=== PATIENT | female | born 2000 | race Caucasian/White ===

== ENCOUNTER 2021-12-04 11:17 | Emergency (ER) | payer OTHER, SELFPAY ==
--- NOTE | ~2021-12-04 | XR_ITS ---
EXAMINATION: XR chest 2V DATE: 12/04/2021 11:57 INDICATION: Shortness of breath. Cough. TECHNIQUE: Frontal and lateral views of the chest were obtained. COMPARISON: None. FINDINGS: The chest demonstrates clear lungs without pneumonia, pleural effusion, or pneumothorax. Th e heart size is normal. IMPRESSION: 1. No acute cardiopulmonary disease. Reviewed, dictated and finalized at location B.
[2021-12-04 11:23] VITALS: BP 137/82; PULSE 103; RESP 20; TEMP 36.8; O2SAT 99
[2021-12-04 11:30] VITALS: O2SAT 97
[2021-12-04 11:33] VITALS: PULSE 107
--- NOTE | 2021-12-04 11:33 | ECG_ITS ---
Measurements Intervals [place] Rate: 95 P: 69 TN: 130 QRS: 32 QRSD: 92 T: 12 QT: 318 QTc: 400 Interpretive Statements SINUS RHYTHM INCOMPLETE RIGHT BUNDLE BRANCH BLOCK BORDERLINE ST-T WAVE ABNORMALITY- INFERIOR LEADS BASELINE ARTIFACT- I, II, III, AVL, AVF BORDERLINE ECG Electronically Signed On 12-04-2021 12:51:11 CDT by Gianfranco Olivas D.O.
--- NOTE | 2021-12-04 11:57 | ED.SOB ---
HPI - SOB/Dyspnea General Chief Complaint: Shortness of Breath/Dyspnea Stated Complaint: diagnosed with RSV started on antibiotic - high HR Time Seen by Provider: 12/04/21 11:29 History of Present Illness HPI Narrative: 21-year-old female presents to the emergency room for evaluation of reproducible, intermittent chest pain with high heart rate. Patient states that her daughter was recently diagnosed with RSV, and she went to be evaluated by urgent care 2 days ago. Patient states that she was started on an albuterol inhaler and 50 mg of prednisone, and has noticed that her heart rate has been high since then. Patient also states that she has had a nonproductive cough since . Patient states that she was started on a Z-Yosef yesterday, and has had no relief of symptoms since then. Related Data Home Medications Medication Instructions Recorded Confirmed albuterol sulfate 2 inh INHALATION Q6H PRN 12/04/21 azithromycin [Zithromax Z-Yosef] mg PO 12/04/21 benzonatate [Tessalon Perles] 100 mg PO TID 12/04/21 prednisone 50 mg PO DAILY 12/04/21 Allergies Allergy/AdvReac Type Severity Reaction Status Date / Time No Known Allergies Allergy Verified 12/04/21 11:34 Review of Systems Review of Systems: CONSTITUTIONAL: Denies fever, chills, or sweats. EYES: Denies visual changes, redness, or discharge. ENT: Denies rhinorrhea, congestion, sore throat, or otalgia. CARDIOVASCULAR: Reports chest pain RESPIRATORY: Reports cough and shortness of breath GASTROINTESTINAL: Denies abdominal pain, nausea, vomiting, or diarrhea. GENITOURINARY: Denies dysuria or hematuria. SKIN: Denies rash or itching. MUSCULOSKELETAL: Denies back pain, joint pain, or myalgia. NEUROLOGIC: Denies headache, numbness, dizziness, or weakness. PSYCHIATRIC: Denies anxiety or depression. Exam Narrative: GENERAL: Well-appearing, well-nourished, and in no acute distress. HEAD: Normocephalic, atraumatic. EYES: PERRLA and EOMI. ENT: Nares clear, no rhinorrhea or epistaxis. Mucous membranes moist. Oropharynx without tonsillar hypertrophy exudate or other lesions. Bilateral TMs pearly portillo nonbulging CHEST: Clear to auscultation. No respiratory distress. No wheezes rales or rhonchi HEART: Regular rate and rhythm. No murmur heard. Normal peripheral pulses. EXTREMITIES: Normal range of motion. No edema. SKIN: Warm, dry, no rash. NEURO: No focal deficits. Alert and oriented x3. PSYCH: Normal mood and affect. Course Vital Signs Vital signs: Vital Signs Temperature 36.8 C 12/04/21 11:23 Pulse Rate 103 H 12/04/21 11:23 Respiratory Rate 20 12/04/21 11:23 Blood Pressure 137/82 12/04/21 11:23 Pulse Oximetry 99 12/04/21 11:23 Temperature 36.8 C 12/04/21 11:23 Pulse Rate 107 H 12/04/21 11:33 Respiratory Rate 20 12/04/21 11:23 Blood Pressure 137/82 12/04/21 11:23 Pulse Oximetry 99 12/04/21 11:23 MDM - SOB/Dyspnea MDM Narrative Medical decision making narrative: 19-year-old female presented to the emergency room for evaluation of shortness of breath, cough and intermittent chest pain. Patient's daughter was recently diagnosed with RSV, and she was told that she had RSV as well without being tested. Patient was sent home from an urgent care 2 days ago with a course of steroids, an albuterol inhaler and Tessalon Perles. Patient states that her symptoms have not improved or resolved. Examining recent prescriptions, milligrams of prednisone daily in the late afternoon. Discussed with patient that her elevated heart rate is likely due to her steroid and albuterol use. We will recommend the patient use half the dose of the steroids she was scribed. Medical Records Attestation: I reviewed the patient's medical records. Lab Data Attestation: I reviewed the patient's lab results. Labs: Lab Results 12/04/21 Range/Units 11:47 Influenza A (RT-PCR) Negative (Negative) Influenza B (RT-PCR) Negative (Negative) SARS-CoV-2 RNA (R
[2021-12-04 12:33] LABS: Influenza A QL RT-PCR Negative (Negative); Influenza B QL RT-PCR Negative (Negative); SARS-CoV-2 RNA PCR Negative
[2021-12-04 13:37] VITALS: BP 124/73; PULSE 94; RESP 20; O2SAT 99
== END 2021-12-04 13:37 | disposition home or self-care (01) ==
PROVIDERS: Emergency Provider Nurse Practitioner Family; PCP Nurse Practitioner Family
DX: B34.9 Viral infection, unspecified (principal); Z20.822 Contact with and (suspected) exposure to COVID-19; I45.10 Unspecified right bundle-branch block; R94.31 Abnormal electrocardiogram [ECG] [EKG]
CPT/HCPCS: 71046; 87420; 87502; 93005; 99283; C9803; U0003; U0005

== ENCOUNTER 2022-01-25 08:38 | Emergency (ER) | payer OTHER, SELFPAY ==
--- NOTE | ~2022-01-25 | CT_ITS ---
EXAMINATION: CT thoracic lumbar wo con DATE: 01/25/2022 09:53 INDICATION: Back tenderness. TECHNIQUE: Computed tomography (CT) of the thoracic and lumbar spine was performed without intravenou s contrast. Automated exposure control and iterative reconstruction technique were employed. The dose -length product was 1152.00 mGy-cm. COMPARISON: Chest 2 views 12/04/2021 FINDINGS: CT THORACIC SPINE: There is 9 degrees dextrocurvature of thoracic spine. Vertebral body heights are n ormal. There is mildly decreased disc height from T3-T4 through T8-T9. There is multilevel mild facet joint osteoarthritis. No neural foraminal stenosis or central canal stenosis. CT LUMBAR SPINE: There is a 2 mm stone in right kidney. There is a 3 mm stone in left kidney. Bone al ignment is normal. Vertebral body heights are normal. Intervertebral disc heights are normal. The fol lowing disc levels are specifically discussed: L1-L2: The disc does not extend beyond the endplate margin. There is mild bilateral facet joint osteo arthritis. There is no neural foraminal stenosis. There is no central canal stenosis. L2-L3: The disc is bulging. There is mild bilateral facet joint osteoarthritis. There is mild bilater al neural foraminal stenosis. There is mild central canal stenosis. L3-L4: The disc is bulging. There is mild bilateral facet joint osteoarthritis. There is mild bilater al neural foraminal stenosis. There is mild central canal stenosis. L4-L5: The disc is bulging. There is mild bilateral facet joint osteoarthritis. There is mild bilater al neural foraminal stenosis. There is mild central canal stenosis. L5-S1: The disc is bulging. There is mild bilateral facet joint osteoarthritis. There is mild bilater al neural foraminal stenosis. There is mild central canal stenosis. IMPRESSION: 1. No fracture. 2. Mild thoracic and lumbar spondylosis. Reviewed, dictated and finalized at location A.
[2022-01-25 08:40] VITALS: BP 141/80; PULSE 117; RESP 16; TEMP 36.5; O2SAT 99
--- NOTE | 2022-01-25 09:35 | ED.BACK ---
HPI - Back Pain/Injury General Chief Complaint: Back Pain/Injury Stated Complaint: back pain - mid lower Time Seen by Provider: 01/25/22 08:58 Source: patient Mode of arrival: ambulatory Limitations: no limitations History of Present Illness HPI Narrative: Patient is a 21-year-old female who presents the ED with reports of mid to lower back pain. Patient reports she lifted a heavy object yesterday and felt sharp pain in her back. The pain has continued to worsen since then, which prompted her to come to the ED. Patient took Tylenol yesterday without much relief. She took two 500 mg [facility] today at 8 AM, which has provided some relief. She also reports last night she began to feel nauseous and developed a fever. T-max of 101.6 at home. Positive dry sore throat and postnasal drip this morning. No cough, congestion, rhinorrhea. No vomiting, abdominal pain. No exposure to sick contacts. No incontinence, numbness, weakness in legs. Related Data Home Medications Medication Instructions Recorded Confirmed albuterol sulfate 90 mcg/actuation 2 inh inhalation Q6H PRN Cough 12/04/21 breath activated powder inhaler azithromycin 250 mg capsule mg PO 12/04/21 benzonatate 100 mg capsule 100 mg PO TID 12/04/21 prednisone 50 mg tablet 50 mg PO DAILY 12/04/21 Allergies Allergy/AdvReac Type Severity Reaction Status Date / Time No Known Allergies Allergy Verified 01/25/22 08:54 Review of Systems Review of Systems: CONSTITUTIONAL: Reports fever. ENT: Reports sore throat, postnasal drip. Denies rhinorrhea, congestion. CARDIOVASCULAR: Denies chest pain. RESPIRATORY: Denies cough or dyspnea. GASTROINTESTINAL: Reports nausea. Denies abdominal pain, incontinence, vomiting, or diarrhea. GENITOURINARY: Denies dysuria, incontinence, or hematuria. MUSCULOSKELETAL: Reports mid to lower back pain. NEUROLOGIC: Denies numbness, tingling, or weakness. All systems reviewed & are unremarkable except as noted in HPI and below PMFSH Past Medical History Medical History (Updated 01/25/22 @ 11:01 by Liudmila Bates PA-C) No pertinent past medical history Surgical History Surgical History (Updated 01/25/22 @ 09:39 by Liudmila Bates PA-C) No pertinent past surgical history Social History Social History (Updated 01/25/22 @ 09:39 by Liudmila Bates PA-C) Smoking status: Never smoker Exam Narrative: GENERAL: Well appearing, well-nourished, non-toxic, in no acute distress. HEAD: Normocephalic, atraumatic. EYES: PERRL/EOMI, conjunctivae clear bilaterally. NOSE: Normal, no drainage. THROAT: Pharynx clear, mild posterior erythema. Bilateral chronic-appearing tonsillar exudate or stones, brownish in color. No purulent/white appearing exudates. MMs moist. NECK: Supple. No adenopathy, no masses. RESPIRATORY: Airway patent, respirations nonlabored. Clear to auscultation bilaterally, no rales, rhonchi, wheezing. CARDIOVASCULAR: Regular rate and rhythm without murmurs, rubs, or gallops. Peripheral pulses 2+ and equal bilaterally. MUSCULOSKELETAL: Moves all extremities. Strength/ROM intact without gross deformities. Midline spinal tenderness in lower thoracic, upper lumbar region. No step-offs or bony deformities appreciated. Mild left-sided paraspinal lumbar muscle tenderness. No cervical midline spinal tenderness. SKIN: Warm, dry, normal color. No rashes. NEURO: A&O X3. Speech clear. Cranial nerves II-XII grossly intact. Steady gait. No ataxic movements. PSYCHIATRIC: Appropriate mood and affect. Normal interaction. Course Vital Signs Vital signs: Vital Signs Temperature 97.7 F 01/25/22 08:40 Pulse Rate 117 H 01/25/22 08:40 Respiratory Rate 16 01/25/22 08:40 Blood Pressure 141/80 H 01/25/22 08:40 Pulse Oximetry 99 01/25/22 08:40 Oxygen Delivery Room Air 01/25/22 08:40 Temperature 97.7 F 01/25/22 08:40 Pulse Rate 100 01/25/22 10:48 Respiratory Rate 15 01/25/22 10:48 Blood Pressure 134/82
--- NOTE | 2022-01-25 09:47 | PC.NURSE ---
PT TO CT SCAN VIA STRETCHER AT THIS TIME.
[2022-01-25 09:50] LABS: Basophils Percent Auto 0.3 % (0.2-1.2); Eosinophils Percent Auto 0.1 % (0-4.4); Hematocrit 41.9 % (37.0-47.0); Hemoglobin 13.7 g/dL (12.0-15.0); Immature Granulocyte Absolute 0.03 K/mm3 (0.00-0.031); Immature Granulocyte Percent A 0.3 % (0-0.5); Lymphocytes Absolute Auto 1.43 K/mm3 (0.9-3.2); Lymphocytes Percent Auto 14.3 % (18.3-44.2); Mean Corpuscular HGB Conc 32.7 g/dl (32-36); Mean Corpuscular Hemoglobin 27.9 pg (26-34); Mean Corpuscular Volume 85.3 fl (80-100); Mean Platelet Volume 11.3 fl (7.4-10.4); Monocytes Absolute Auto 0.8 K/mm3 (0.1-0.6); Monocytes Percent Auto 7.9 % (2.6-8.5); Neutrophils Absolute Auto 7.7 K/mm3 (1.3-6.7); Neutrophils Percent Auto 77.1 % (45.5-73.1); Platelet Count Result 217 k/mm3 (150-375); Red Blood Count 4.91 M/mm3 (4.2-5.4); Red Cell Distribution Width 13.2 % (11.5-14.5)
[2022-01-25 09:58] LABS: Alanine Aminotransferase 18 U/L (6-35); Albumin Level 4.5 g/dL (3.5-5.1); Alkaline Phosphatase 70 U/L (38-126); Anion Gap 8 mmol/L (8-16); Aspartate Amino Transferase 17 U/L (14-36); Bilirubin,Total 0.5 mg/dL (0.2-1.3); Blood Urea Nitrogen 10 mg/dL (7-17); Calcium 8.5 mg/dL (8.4-10.2); Carbon Dioxide 24 mmol/L (22-30); Chloride 105 mmol/L (98-107); Estimated CRCL calculation 87 ml/min; Estimated Glomerular Filt Rate > 60; Glucose 113 mg/dL (65-110); Potassium 3.6 mmol/L (3.4-5.0); Sodium 137 mmol/L (137-145)
[2022-01-25 10:08] LABS: Add Urine Microscopic? YES; Appearance Urine Clear (Clear); Bilirubin Urine 1+ (Negative); Blood Urine Trace-lysed (Negative); Color Urine Yellow (Yellow); Glucose Urine UA Negative (Negative); Ketones Urine Trace mg/dL (Negative); Leukocyte Esterase Ur Negative LEU/UL (Negative); Nitrate Urine Negative (Negative); Protein Urine Negative (Negative); pH Urine 5.5 (5.0-9.0)
[2022-01-25 10:13] LABS: Mucus Urine Rare /lpf; Squamous Epithelial Cell Urine Moderate /hpf (Few); WBC Urine 0-3 /hpf
[2022-01-25 10:25] LABS: Influenza A QL RT-PCR Negative (Negative); Influenza B QL RT-PCR Negative (Negative); SARS-CoV-2 RNA PCR Negative
[2022-01-25 10:48] VITALS: BP 134/82; PULSE 100; RESP 15; O2SAT 97
== END 2022-01-25 11:29 | disposition home or self-care (01) ==
PROVIDERS: Physician Assistant; Emergency Provider Emergency Medicine; PCP Nurse Practitioner Family
DX: S39.012A Strain of muscle, fascia and tendon of lower back, initial encounter (principal); Z20.822 Contact with and (suspected) exposure to COVID-19; M47.816 Spondylosis without myelopathy or radiculopathy, lumbar region; M47.814 Spondylosis without myelopathy or radiculopathy, thoracic region; X50.0XXA Overexertion from strenuous movement or load, initial encounter
CPT/HCPCS: 36415; 72128; 72131; 80053; 81001; 81025; 85025; 87081; 87502; 87880; 96365; 99284; C9803; J0131; U0003; U0005